=== PATIENT | female | born 1995 | race Caucasian/White ===

== ENCOUNTER 2024-11-14 09:11 | Emergency (ER) | payer OTHER, SELFPAY ==
[2024-11-14 09:21] VITALS: BP 107/69
--- NOTE | 2024-11-14 09:39 | ED.GENMED ---
History of Present Illness
General
Chief Complaint: Urinary Symptoms
Source: patient
Exam Limitations: none
Time Seen by Provider: 11/14/24 09:30
History of Present Illness
History of Present Illness:
See MDM
Past History
Past History
ED Past Medical History: None
ED Past Surgical History: None
Patient has exhibited threatening behavior?: No
Social History
Tobacco: Vaping (daily)
Alcohol: None
Phy Exam
Physical Exam
Physical Exam:
See MDM
Course
Orders/Labs/Results
Orders:
Orders
11/14/24 09:36
CT Abd/pel Without Iv Or Oral Urgent
Comment:
Reason For Exam: Hematuria, UTI, R flank pain
11/14/24 09:38
CefTRIAXone [Rocephin] 1,000 mg IV NOW STA
Ketorolac [Toradol] 30 mg IV NOW STA
Phenazopyridine HCl [Pyridium] 200 mg PO NOW STA
Test Result ONCE
11/14/24 09:48
Complete Blood Count/With Diff Urgent
Comprehensive Metabolic Panel Urgent
HCG, Serum Qualitative Screen Urgent
Urinalysis Reflex To Culture Urgent
Date Specimen was Collected: 11/14/24
Time Specimen was Collected: 09:43
Urine Microscopic Reflex Cult Urgent
Urine Culture Urgent
[facility] Source: U
Specimen Description:
Date Specimen was Collected: 11/14/24
Time Specimen was Collected: 09:43
Abnormal Lab Results
11/14/24
09:48
Hct 36.2 L %
(37.0-47.0)
Absolute Monos (auto) 0.7 H 10^3/uL
(0.1-0.6)
Glucose 101 H mg/dl
(70-99)
Ur Occult Blood Reflex 4+ A
(Negative)
Urine Nitrite (Reflex) Positive A
(Negative)
Urine Bilirubin 2+ A
(Negative)
Urine Urobilinogen 2+ A
(Neg - 1+)
Leukocyte Esterase Rfl 3+ A
(Negative)
Urine Albumin (Reflex) 2+ A
(Neg - Trace)
11/14/24 09:48
11/14/24 09:48
Vital Signs
Initial and Last Documented VS:
Initial Vital Signs
Temp Pulse Resp BP Pulse Ox
98.9 F 85 16 107/69 99
11/14/24 09:21 11/14/24 09:21 11/14/24 09:21 11/14/24 09:21 11/14/24 09:21
Last Documented Vital Signs
Temp Pulse Resp BP Pulse Ox
98.0 F 68 18 111/74 98
11/14/24 12:02 11/14/24 12:02 11/14/24 12:02 11/14/24 12:02 11/14/24 12:02
MDM/Problems Addressed
Differential Diagnosis Includes:
HPI and MDM Narrative:
29-year-old female presenting for evaluation of UTI, hematuria and flank pain. She developed sudden onset of UTI symptoms yesterday so she went to urgent care. She was placed on Macrobid. She took a dose last night and this morning the symptoms
are worsening. She is now developing flank pain, right greater than left. Given the clinical concern for pyelonephritis, will start IV antibiotics. She is otherwise nontoxic-appearing and afebrile. Will give dose of IV Rocephin. Will obtain CT
to rule out any kidney stone pathology given the hematuria
Physical exam
General: Well appearing and non-toxic
HEENT: protecting airway
Neck: appears supple
CV: No evidence of cyanosis
Resp: No accessory muscle use
Abd: Non-distended. No tenderness noted
Back: No CVA tenderness
Extremities: No deformities
Neuro: alert
Psych: Normal affect
Skin: Intact
Problems Addressed including Acute and Chronic Conditions affecting care:
1. Pyelonephritis
Acuity: acute
Prognosis: stable
Details: Will start IV antibiotics. Given flank pain with hematuria, will obtain CT to rule out kidney stone pathology
Updates
Patient feeling better on reassessment. We discussed the incidental kidney stones. Will treat as pyelonephritis and discussed return precautions
Differential Diagnosis (but not limited to): UTI, pyelonephritis, kidney stone
Testing considered: Renal ultrasound
Drug therapy (if applicable): OTC meds, please see d/c instruction regarding Rx drugs
Amount and/or Complexity of Data Reviewed
Clinical info obtained from: Patient
External data reviewed: N/A
Labs I independently reviewed (but not limited to): Urinalysis
Radiology: The CT scan was personally and independently reviewed. In addition, official CT report reviewed.
Pulse Ox: not hypoxic
EKG independently reviewed: N/A
[employer]: N/A
Critical Care: N/A
Risk of Complication:
Social Determinants of health: Good social support
Discussed with other providers: N/A
Escalation of Care includes Admit/Obs: After being observed in the Emergency Department, pt stable for discharge.
Occasional wrong word or 'sound a like' substitutions may have occurred due to the inherent limitations of voice recognition software. Read the chart carefully and recognize, using context, where substitutions have occurred.
*Critical Care Note
Total Time (30-74mins, 75-104mins- exclusive of procedures): Not Applicable
ED Attending Note
-
Portions of this chart may have been created with voice recognition software.� Occasional wrong word or��sound alike� substitutions may have occurred due to the inherent limitations of voice recognition software.
Discharge Plan
Departure
Patient Disposition: Home (Routine Discharge)
Date of Disposition: 11/14/24
Time of Disposition: 12:16
Patient with high blood pressure during this ER visit?: No
Discharge Problem:
Pyelonephritis
Instructions: Urinary tract infections in adults
Prescriptions:
New
ciprofloxacin HCl 500 mg Tablet
500 mg PO BID Qty: 14 0RF
phenazopyridine [Pyridium] 100 mg tablet
100 mg PO TID PRN (Reason: Pain) Qty: 6 0RF
No Action
ondansetron 4 MG tablet,disintegrating
4 mg PO QIDPRN PRN (Reason: nausea/vomiting) Qty: 20 0RF
Referrals:
NONE,* [Family Provider] -
Activity Restrictions/Additional Instructions:
Please return for any worsening symptoms.
You may return at any time if you have further concerns.
Please follow up with your doctor at the first available appointment, preferably this week.
Thank you for choosing [facility].
Interventions
Interventions:
*General Assessment Last Done: 11/14/24 09:46
ED-Female Genitourinary Assessment Last Done: 11/14/24 09:59
Discharge Date and Time
Print Language: SYRIAC
[2024-11-14] MEDS: Pyridium 200 MG PO (09:46)
[2024-11-14] MEDS: ROCEPHIN 1000 MG IV (09:47)
[2024-11-14] MEDS: TORADOL 30 MG IV (09:47)
[2024-11-14 10:12] LABS: % Eosinophils 2.5 % (0-6); % Immature Granulocytes 0.2 % (0-0.5); % Lymphocytes 22.6 % (20.5-51.1); % Monocytes 8.2 % (1.7-9.3); % Neutrophils 65.5 % (42.2-75.2); Absolute Basophils 0.1 10^3/uL (0-0.2); Absolute Eosinophils 0.2 10^3/uL (0-0.7); Absolute Lymphocytes 1.9 10^3/uL (1.2-3.4); Absolute Monocytes 0.7 10^3/uL (0.1-0.6); Absolute Neutrophils 5.4 10^3/uL (1.4-6.5); Hematocrit 36.2 % (37.0-47.0); Hemoglobin 12.6 g/dL (12.0-16.0); Mean Corp Hgb Conc. 34.8 g/dL (33.0-37.0); Mean Corpuscular Hgb 29.9 pg (27.0-31.0); Mean Platelet Volume 9.7 fL (7.4-10.4); Nucleated Red Blood Cells % 0 %; Platelet Count 290 10^3/uL (130-400); Red Blood Cell Count 4.21 10^6/uL (4.20-5.40); Red Cell Dist. Width 11.6 % (11.5-14.5); White Blood Cell Count 8.3 10^3/uL (4.8-10.8)
[2024-11-14 10:21] LABS: HCG, Serum Qualitative Screen Negative
[2024-11-14 10:25] LABS: ALT (SGPT) 17 U/L (0-35); AST (SGOT) 22 U/L (14-36); Albumin 4.1 g/dl (3.5-5.0); Alkaline Phosphatase 53 U/L (38-126); Blood Urea Nitrogen 12 mg/dl (7-17); Calcium 9.6 mg/dl (8.4-10.2); Carbon Dioxide 25 mmol/L (22-30); Chloride 105 mmol/L (98-107); Glucose 101 mg/dl (70-99); Potassium 4.2 mmol/L (3.5-5.1); Sodium 137 mmol/L (135-145); Total Bilirubin 0.6 mg/dl (0.2-1.3); Total Protein 6.8 g/dl (6.3-8.2); eGFR > 60.00
[2024-11-14 12:02] VITALS: BP 111/74
[2024-11-14 12:04] LABS: Urine Albumin 2+ (Neg - Trace); Urine Bilirubin 2+ (Negative); Urine Character Clear (Clear); Urine Color Amber; Urine Glucose Negative (Negative); Urine Ketone Negative (Negative); Urine Leukocyte 3+ (Negative); Urine Nitrite Positive (Negative); Urine Occult Blood 4+ (Negative); Urine Specific Gravity 1.025 (<1.030); Urine Urobilinogen 2+ (Neg - 1+)
[2024-11-14 12:15] LABS: Urine Squamous Cell >30 /LPF (Few); Urine Urothelial Cell 0-2 /LPF (FEW)
[2024-11-14 12:16] LABS: Urine Bacteria Moderate (Negative); Urine White Cell 30-40 /HPF (0-5)
== END 2024-11-14 12:39 | disposition home or self-care (01) ==
LOC: EMR 09:11
PROVIDERS: EMERGENCY PHYSICIAN Student in an Organized Health Care Education/Training Program
DX: N12 Tubulo-interstitial nephritis, not specified as acute or chronic (principal); F17.290 Nicotine dependence, other tobacco product, uncomplicated
CPT/HCPCS: 99284; 96374; 96375; 74176; 80053; 81003; 81015; 84703; 85025; 87086

== ENCOUNTER 2025-05-16 01:14 | Emergency (ER) | payer OTHER, SELFPAY ==
[2025-05-16 01:26] VITALS: BP 119/79
[2025-05-16 02:17] VITALS: BP 110/71
[2025-05-16 02:18] VITALS: BMI 23.2
[2025-05-16 02:45] LABS: Hematocrit 38.3 % (37.0-47.0); Hemoglobin 13.3 g/dL (12.0-16.0); Mean Corp Hgb Conc. 34.7 g/dL (33.0-37.0); Mean Corpuscular Volume 84.4 fL (81.0-99.0); Nucleated Red Blood Cells % 0 %; Platelet Count 353 10^3/uL (130-400); Red Cell Dist. Width 12.3 % (11.5-14.5)
[2025-05-16 02:58] LABS: ALT (SGPT) 18 U/L (0-35); AST (SGOT) 27 U/L (14-36); Albumin 4.8 g/dl (3.5-5.0); Alkaline Phosphatase 57 U/L (38-126); Blood Urea Nitrogen 14 mg/dl (7-17); Calcium 9.3 mg/dl (8.4-10.2); Carbon Dioxide 23 mmol/L (22-30); Chloride 108 mmol/L (98-107); Estimated Creatinine Clearance 103 ml/min; Glucose 88 mg/dl (70-99); Potassium 4.1 mmol/L (3.5-5.1); Sodium 141 mmol/L (135-145); Total Protein 7.6 g/dl (6.3-8.2); eGFR > 60.00
[2025-05-16 03:00] VITALS: BP 106/73
[2025-05-16 03:03] LABS: COVID-19 Antigen Negative (Negative)
[2025-05-16 03:10] LABS: Troponin I < 0.012 ng/ml
--- NOTE | 2025-05-16 03:30 | ED.GENMED ---
History of Present Illness
General
Chief Complaint: Chest Pain
Source: patient
Exam Limitations: none
Time Seen by Provider: 05/16/25 02:08
Nursing documentation reviewed up to this point in time: agreed with
History of Present Illness
History of Present Illness:
Note:
CHIEF COMPLAINT(S)
Chest pain, described as stabbing and piercing.
HISTORY OF PRESENT ILLNESS
The patient is a 39-year-old female who reports the onset of chest pain last night. She describes this pain as a stabbing, piercing feeling that woke her from sleep early in the morning. Approximately a week and a half ago, she experienced
bronchitis, but symptoms improved within a couple of days. However, the sudden new onset of chest pain led her to seek evaluation. She denies any known allergies or risk of . Her last menstrual period was on April 22. She is not currently
taking any medications.
PAST SURGICAL HISTORY
The patient has a history of surgical intervention for an ectopic years ago.
SOCIAL HISTORY
The patient vapes, consumes alcohol socially on occasion, and holds a medical marijuana card for use, albeit no other drug use is reported. 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
MEDICATIONS
The patient currently does not take any medications.
REVIEW OF SYSTEMS
- Respiratory: History of bronchitis approximately a week and a half ago.
- Cardiovascular: Reports sudden onset chest pain, described as stabbing and piercing.
- Reproductive: Denies potential ; last menstrual period noted.
PHYSICAL EXAM
General: Alert, no acute distress.
Skin: Warm, dry.
Head: Normocephalic, atraumatic.
Neck: Supple, trachea midline.
Eye, Ears, Nose, Mouth, and Throat: Oral mucosa moist.
Cardiovascular: Normal peripheral perfusion, No edema.
Respiratory: Respirations are non-labored.
Gastrointestinal: Abdomen nondistended.
Back: Normal range of motion, Normal alignment.
Musculoskeletal: Normal range of motion, normal strength.
Neurological: Alert and oriented to person, place, time, and situation, No focal neurological deficit observed.
Psychiatric: Cooperative, appropriate mood & affect.
PLAN
The plan includes administering a breathing treatment in the clinic. If the patients response is favorable, she will be discharged with a prescription for more inhalers - likely Albuterol and potentially an inhaled corticosteroid.
DIFFERENTIAL DIAGNOSIS
The Differential Diagnosis includes, in no particular order and is not limited to:
1. Costochondritis
2. Gastroesophageal reflux disease (GERD)
3. Pneumothorax
4. Myocardial infarction
5. Pericarditis
6. Anxiety or panic disorder
7. Pulmonary embolism
8. Rib fracture
9. Pneumonia
10. Pleuritis
Disposition:
SUMMARY OF ENCOUNTER
The patient, a 39-year-old female, presented to the emergency department with reports of chest pain and a cough. Upon evaluation, she received a breathing treatment and was administered dexamethasone, resulting in significant improvement of her
symptoms.
DISPOSITION
Discharge.
ASSESSMENT
The patients symptoms improved post-treatment, leading to discharge with no immediate acute concerns.
EMERGENCY TREATMENTS ADMINISTERED
Breathing treatment; dexamethasone; two liters of intravenous fluids.
PLAN
The patient is to be discharged home. She may be given prescriptions for inhalers, such as Albuterol and potentially an inhaled corticosteroid, for continued management at home, if her symptoms persist.
PATIENT EDUCATION AND COUNSELING
The patient was informed about the nature of her condition and was advised on signs and symptoms that would necessitate returning to the emergency department or seeking further medical attention.
FOLLOW-UP INSTRUCTIONS
The patient has been instructed to follow up with her primary care provider for further evaluation and management.
MEDICATION RECONCILIATION
A prescription for Albuterol inhaler and potentially an inhaled corticosteroid may be provided upon discharge.
MEDICAL DECISION MAKING
-Complexity of Data Reviewed: DDx includes costochondritis, gastroesophageal reflux disease (GERD), pneumothorax, myocardial infarction, pericarditis, anxiety or panic disorder, pulmonary embolism, rib fracture, pneumonia, pleuritis.
-Data:
Category 1
The patient received breathing treatment and dexamethasone in the emergency department, improving her condition.
-Risk:
Consideration of Admission/Observation: Escalation of care including admission/observation was considered given the complexity and risk of the patients presenting complaint, exam findings, and/or her underlying comorbidities. However, ultimately, it
is believed the patient is safe for outpatient management with close follow-up. Reasoning: The work-up was reassuring, did not reveal any acute life/organ-threatening processes, the patients symptoms were well controlled upon reevaluation,
reexamination was reassuring, vitals were stable, the patient was agreeable with discharge, reliable for follow-up.
DIAGNOSIS
Acute cough (R05).
Past History
Past History
ED Past Medical History: None
ED Past Surgical History: None
Patient has exhibited threatening behavior?: No
Social History
Tobacco: Vaping (daily)
Alcohol: None
Phy Exam
Physical Exam
Physical Exam:
.
Scores
Heart Score for Chest Pain Patients
STEMI patient?: Not applicable
Course
Orders/Labs/Results
Orders:
Orders
05/16/25 01:18
EKG [Electrocardiogram (*1)] Urgent
Reason for Study: Chest Pain
EKG- Treatment ONCE
05/16/25 01:54
CXR2 [CR Chest - 2 Views ] Urgent
Comment:
Reason For Exam: persistent hacking cough and chest pain
05/16/25 02:02
COVID-19 Antigen Urgent
Source: Nasal Swab
Complete Blood Count/With Diff Urgent
Comprehensive Metabolic Panel Urgent
Troponin I Urgent
Influenza A+B Rapid Molecular Urgent
[facility] Source: Nasal Swab
Specimen Description:
05/16/25 03:23
Dexamethasone Pf [Decadron] 10 mg PO NOW STA
Ipratropium/Albuterol Sulfate [Duoneb] 3 ml INH R NOW ONE
05/16/25 04:07
Ondansetron Orally Disint [Zofran Odt (Orally Disintegrating)] 4 mg .ROUTE .STK-MED ONE
05/16/25 04:10
Ondansetron Orally Disint [Zofran Odt (Orally Disintegrating)] 4 mg PO NOW STA
05/16/25 05:03
Ondansetron Injectable [Zofran] 4 mg .ROUTE .STK-MED ONE
05/16/25 05:12
Ondansetron Injectable [Zofran] 4 mg IV NOW STA
05/16/25 05:13
0.9% Sodium Chloride 1000 ml [Nss] 1,000 ml IV BOLUS
Abnormal Lab Results
05/16/25
02:02
Chloride 108 H mmol/L
(98-107)
05/16/25 02:02
05/16/25 02:02
Vital Signs
Initial and Last Documented VS:
Initial Vital Signs
Temp Pulse Resp BP Pulse Ox
98.5 F 77 18 119/79 95
05/16/25 01:26 05/16/25 01:26 05/16/25 01:26 05/16/25 01:26 05/16/25 01:26
Last Documented Vital Signs
Temp Pulse Resp BP Pulse Ox
98.5 F 66 18 116/74 97
05/16/25 01:26 05/16/25 06:00 05/16/25 06:00 05/16/25 04:00 05/16/25 06:00
*Pulse Oximetry
SaO2: 97
Oxygen Mode of Delivery: Room air
Patient hypoxic: no
*Critical Care Note
Total Time (30-74mins, 75-104mins- exclusive of procedures): Not Applicable
ED Attending Note
-
Portions of this chart may have been created with voice recognition software.� Occasional wrong word or��sound alike� substitutions may have occurred due to the inherent limitations of voice recognition software.
Discharge Plan
Departure
Patient Disposition: Home (Routine Discharge)
Date of Disposition: 05/16/25
Time of Disposition: 05:55
Patient with high blood pressure during this ER visit?: No
Discharge Problem:
Chest pain, Cough
Instructions: Cough in adults - ED (DC), Chest Pain PCP Follow Up, BLOOD PRESSURE
Prescriptions:
New
albuterol sulfate [Ventolin HFA] 90 mcg/actuation HFA aerosol inhaler
2 puff inhalation Q6H PRN (Reason: shortness of breath or wheezing) Qty: 8.5 0RF
No Action
ondansetron 4 MG tablet,disintegrating
4 mg PO QIDPRN PRN (Reason: nausea/vomiting) Qty: 20 0RF
Referrals:
[facility] [Outside]
NONE,* [Family Provider, Internal Medicine]
Activity Restrictions/Additional Instructions:
Thank You for choosing [facility].
It was a pleasure meeting you and taking part in your care. We hope for your continued healing and wellness.
Please read discharge instructions in their entirety. However, they are for general education and may not describe your exact diagnosis at discharge. Information on your ER visit and medical conditions were discussed with you along with appropriate
follow up information...
If indicated, please take your medications as instructed and indicated on discharge paperwork.
Please schedule a follow up appointment as directed. Call to schedule an appointment
Please return to the emergency department with ANY change in, persisting, or worsening of symptoms. If any of your symptoms do not improve, or persist, or become more severe within 6-12 hours, please return to the emergency department for further
care.
Please return to the emergency department if you develop a headache, neck pain/stiffness, fever greater than 100.4F, chest pain, shortness of breath, persistent nausea, vomiting, slurred speech, difficulty walking, numbness/tingling, weakness, signs
of infection or any other symptoms that are worrisome to you.
If you have any questions or concerns please do not hesitate to call the Hospital at or E-mail me directly at [email or web address]
Interventions
Interventions:
*Risk Screen - Suicide Last Done: 05/16/25 01:26
*General Assessment Last Done: 05/16/25 02:18
*Neglect/Abuse Screening Last Done: 05/16/25 02:18
*ED- Fall Risk Assessment Last Done: 05/16/25 02:18
*ED COVID-19 Vaccine History Last Done: 05/16/25 02:18
*Nursing Disposition Last Done: 05/16/25 06:14
ED- Cardiac Assessment Last Done: 05/16/25 02:18
Discharge Date and Time
Discharge Date/Time: 05/16/25 06:44
Print Language: ROMANSH
[2025-05-16] MEDS: DECADRON 10 MG PO (03:33)
[2025-05-16] MEDS: DUONEB 3 ML INH (03:33)
[2025-05-16 04:00] VITALS: BP 116/74
[2025-05-16] MEDS: ZOFRAN ODT (ORALLY DISINTEGRATING) 4 MG PO (04:10)
[2025-05-16] MEDS: ZOFRAN 4 MG IV (05:12)
[2025-05-16] MEDS: NSS 1000 IV (05:13)
== END 2025-05-16 06:44 | disposition home or self-care (01) ==
LOC: EMR 01:14
PROVIDERS: Obstetrics & Gynecology Gynecologic Oncology; EMERGENCY PHYSICIAN Student in an Organized Health Care Education/Training Program
DX: R07.9 Chest pain, unspecified (principal); R05.9 Cough, unspecified; F17.290 Nicotine dependence, other tobacco product, uncomplicated; Z11.52 Encounter for screening for COVID-19
CPT/HCPCS: 94640; 96374; 96361; 99285; 71046; 80053; 84484; 85025; 87502; 87811; 93005

== ENCOUNTER 2025-06-10 23:24 | Emergency (ER) | payer OTHER, SELFPAY ==
[2025-06-10 23:27] VITALS: BP 108/76
[2025-06-10 23:47] LABS: Hematocrit 38.8 % (37.0-47.0); Hemoglobin 13.5 g/dL (12.0-16.0); Mean Corp Hgb Conc. 34.8 g/dL (33.0-37.0); Mean Corpuscular Volume 83.6 fL (81.0-99.0); Nucleated Red Blood Cells % 0 %; Platelet Count 381 10^3/uL (130-400); Red Cell Dist. Width 11.9 % (11.5-14.5)
[2025-06-11 00:09] LABS: ALT (SGPT) 20 U/L (0-35); AST (SGOT) 28 U/L (14-36); Albumin 5.1 g/dl (3.5-5.0); Alkaline Phosphatase 68 U/L (38-126); Blood Urea Nitrogen 18 mg/dl (7-17); Calcium 9.5 mg/dl (8.4-10.2); Carbon Dioxide 21 mmol/L (22-30); Chloride 107 mmol/L (98-107); Glucose 97 mg/dl (70-99); Potassium 3.9 mmol/L (3.5-5.1); Sodium 143 mmol/L (135-145); Total Protein 7.9 g/dl (6.3-8.2); eGFR > 60.00
[2025-06-11 00:09] LABS: COVID-19 Antigen Negative (Negative)
[2025-06-11 01:05] LABS: Troponin I < 0.012 ng/ml
[2025-06-11 01:34] VITALS: BP 106/71
[2025-06-11 02:00] VITALS: BP 95/63
[2025-06-11 03:00] VITALS: BP 97/68
== END 2025-06-11 03:37 | disposition left against medical advice (07) ==
LOC: EMR 23:24
PROVIDERS: EMERGENCY PHYSICIAN Student in an Organized Health Care Education/Training Program
DX: R07.9 Chest pain, unspecified (principal); Z53.21 Procedure and treatment not carried out due to patient leaving prior to being seen by health care provider
CPT/HCPCS: 80053; 84484; 85025; 87502; 87811; 93005